=== PATIENT | female | born 1950 | race Caucasian/White ===

== ENCOUNTER 2020-01-07 17:04 | Emergency (ER) | payer OTHER ==
[~2020-01-07] VITALS: Ht 152.4 cm; Wt 65.8 kg
[2020-01-07 17:17] VITALS: Ht 152.4 cm; Wt 65.8 kg
[2020-01-07 18:36] VITALS: BP 170/105
== END 2020-01-07 18:36 | disposition home or self-care (01) ==
LOC: ED 17:04
DX: G51.0 Bell's palsy (principal); I10 Essential (primary) hypertension; E78.00 Pure hypercholesterolemia, unspecified; Z88.8 Allergy status to other drugs, medicaments and biological substances
CPT/HCPCS: J7030; J7512

== ENCOUNTER 2020-05-04 02:10 | Emergency (ER) | payer OTHER ==
[~2020-05-04] VITALS: Ht 152.4 cm; Wt 64.0 kg
[2020-05-04 02:15] VITALS: Ht 152.4 cm; Wt 64.0 kg
[2020-05-04 04:59] LABS: BASOPHIL % 0.3 % (0-2); PLATELET COUNT 141 x10^3mcL (130-400); RED CELL DISTRIBUTION WIDTH 13.7 % (11.5-14.5)
[2020-05-04 05:23] LABS: CALCIUM 9.4 mg/dL (8.5-10.1); CHLORIDE SERUM 106 mmol/L (98-107); CREATININE SERUM 0.7 mg/dL (0.6-1.0); GFR1 > 60 mL/min; GLUCOSE SERUM 111 mg/dL (74-106); POTASSIUM SERUM 3.9 mmol/L (3.5-5.1); SODIUM SERUM 140 mmol/L (136-145)
[2020-05-04 05:28] LABS: ALBUMIN 3.9 g/dL (3.4-5.0); ALKALINE PHOSPHATASE 105 U/L (46-116); ALT/SGPT 57 U/L (14-59); AST/SGOT 29 U/L (15-37); BILIRUBIN TOTAL 0.56 mg/dL (0.20-1.00); TOTAL PROTEIN, SERUM 8.1 g/dL (6.4-8.2)
[2020-05-04] MEDS ORDERED: LOTENSIN20 MG PO (07:41)
[2020-05-04] MEDS ORDERED: TENORMIN100 MG PO (07:41)
[2020-05-04] MEDS ORDERED: TOPROL XL100 MG PO (07:41)
[2020-05-04] MEDS ORDERED: LIPITOR40 MG PO (07:43)
[2020-05-04] MEDS ORDERED: LEVO-T50 MCG PO (07:44)
[2020-05-04] MEDS ORDERED: ALENDRONATE SOD35 M3 PO (07:44)
[2020-05-04] MEDS ORDERED: VITAMIN D50000 I4 PO (07:44)
[2020-05-04] MEDS ORDERED: IBU400 M2 PO (07:45)
[2020-05-04 10:00] VITALS: BP 134/88
== END 2020-05-04 10:00 | disposition home or self-care (01) ==
LOC: ED 02:10
DX: H11.31 Conjunctival hemorrhage, right eye (principal); I16.0 Hypertensive urgency; I10 Essential (primary) hypertension; E78.00 Pure hypercholesterolemia, unspecified; Z88.8 Allergy status to other drugs, medicaments and biological substances
CPT/HCPCS: J3490; Q9967